=== PATIENT | female | born 1990 | race Caucasian/White ===

== ENCOUNTER 2018-04-04 05:40 | Emergency (ER) | payer BC, OTHER ==
[2018-04-04] MEDS ORDERED: NS 1,000 ML IV ONE (06:06)
[2018-04-04] MEDS ORDERED: KETOROLAC 30 MG/1 ML SDV IVP ONE (06:06)
[2018-04-04] MEDS ORDERED: ONDANSETRON 4 MG/2 ML VIAL ONE (06:11)
--- NOTE | 2018-04-04 06:11 | EDPHY ---
H & P Time Seen by Provider: 04/04/18 06:03 HPI/ROS: CC: Right flank pain HPI: This 27-year-old female with past medical history significant for excessive vaginal bleeding presents to the emergency department today complaining of abrupt onset of right flank pain that started at 4:30 a.m. this morning. She was fine prior to going to sleep last evening. She describes the pain as sharp and currently at 9/10. She also has pain across her lower abdomen. She has not had pain like this previously. She has had nausea and vomiting x 4 but denies fever or chills. Her urine is bloody. FDLMP 1 week ago. . No vaginal discharge. She has an IUD. REVIEW OF SYSTEMS: Constitutional: No fever, no chills. Eyes: No discharge. ENT: No sore throat. Respiratory: No cough, no shortness of breath. Cardiac: No chest pain, no palpitations. Gastrointestinal: See HPI. Genitourinary: See HPI. Musculoskeletal: No neck pain. Skin: No rashes. Neurological: No headache. Past Medical/Surgical History: PMH: Excessive vaginal bleeding/anemia. PSH: IUD, wisdom teeth FH: HTN NKDA Medications: None PCP [facility] Social History: Smokes hookah, 10 ETOH beverages/week, Marijuana 1-2x/month. Smoking Status: Current every day smoker Physical Exam: General Appearance: Alert, moderate distress. Eyes: Pupils equal and round no pallor or injection. ENT, Mouth: Mucous membranes are moist. Respiratory: There are no retractions, lungs are clear to auscultation. Cardiovascular: Regular rate and rhythm. Gastrointestinal: Abdomen is soft + tenderness to palpation across lower abdomen. No R/G/R, no masses, bowel sounds normal. Neurological: Awake and alert, sensory and motor exams grossly normal. Skin: Warm and dry, no rashes. Musculoskeletal: Neck is supple nontender. Extremities are symmetrical, full range of motion. Psychiatric: Patient is oriented X 3, there is no agitation. DIFFERENTIAL DIAGNOSIS: After history and physical exam differential diagnosis was considered for but not limited to: ureterolithiasis, appendicitis, ovarian torsion, ectopic , STI Constitutional: Initial Vital Signs Temperature (C) 98 F 04/04/18 05:50 Heart Rate 84 04/04/18 05:50 Respiratory Rate 20 04/04/18 05:50 Blood Pressure 115/74 04/04/18 05:50 O2 Sat (%) 92 04/04/18 05:50 O2 Delivery Mode Room Air Allergies/Adverse Reactions: No Known Allergies Allergy (Unverified 09/09/14 13:17) Home Medications: Medication Instructions Recorded Bcp 09/09/14 Iron 18 mg PO 09/09/14 Hydrocodone/Acetaminophen 2 each PO Q4 2 Days #10 tablet 04/04/18 [Hydrocodon-Acetaminophen 5-325] Tamsulosin HCl [Flomax 0.4 MG (*)] 0.4 mg PO DAILY #10 cap 04/04/18 Medical Decision Making - Diagnostics Imaging Results: CT Abd/Pelvis w/o contrast per verbal report Dr. Moreno: 5mm stone at right UPJ, moderate hydro. IUD malpositioned. Please refer to final written report. Imaging: Discussed imaging studies w/ order caller Radiologist ED Course/Re-evaluation: The patient was seen and examined. Vital signs reviewed. History and exam consistent with ureterolithiasis. UCG Negative. CBC with mild elevation of WBC at 9.9. Hg/Hct wnl. BMP significant for mild hypokalemia with K+ of 3.0. UA with 3+ blood. An IV was placed and the patient was given a L of IV fluids, 4 mg of Zofran IV push and 30 mg of Toradol IV push with good result. CT of the abdomen and pelvis without contrast showed a 5 mm stone at the right UPJ with moderate hydro. Her IUD was also malpositioned. Discussed with [place] For Dr. Saucedo urologist. Their surgery schedule is full today but the patient should call the office at 9:00 a.m. for an appointment tomorrow. Nothing to eat or drink after midnight. She would also like us to start Flomax and the patient was given the 1st dose in the ER. She will be given a take- home pack of hydrocodone and Zofran and a prescription for a short course of hydrocodone as well. The patient is aware that she should also call [facility] and have her IUD either repositioned or replaced and she should abstain from sexual activity until this is done. She was also counseled on increasing the potassium in her diet. All questions answered at this time. - Data Points Laboratory Results: 04/04/18 06:21 POC Sodium 139 mEq/L mEq/L (135-145) POC Potassium 3.0 mEq/L L mEq/L (3.3-5.0) POC Chloride 104.0 mEq/L mEq/L (97-110) POC Total CO2 21 mEq/L L mEq/L (22-31) POC BUN 11 mg/dL mg/dL (7-23) POC Creatinine 0.7 mg/dL mg/dL (0.6-1.0) POC Glucose 101 mg/dL H mg/dL (70-100) POC Calcium 9.1 mg/dL mg/dL (8.5-10.4) Medications Given: Discontinued Medications Sodium Chloride (Ns) 1,000 mls @ 0 mls/hr IV ONCE ONE; Wide Open PRN Reason: Protocol Stop: 04/04/18 06:07 Last Admin: 04/04/18 06:13 Dose: 1,000 mls Ketorolac Tromethamine (Toradol) 30 mg IVP EDNOW ONE Stop: 04/04/18 06:07 Last Admin: 04/04/18 06:14 Dose: 30 mg Ondansetron HCl (Zofran) 4 mg IVP EDNOW ONE Stop: 04/04/18 06:15 Last Admin: 04/04/18 06:17 Dose: 4 mg Point of Care Test Results: CBC CBC Collection Date 04/04/18 CBC Collection Time 06:00 WBC 9.9 RBC 5.54 HGB 13.4 HCT 40.5 PLT 231 Neut # 4.9 Neut 49.8 LYMPH # 4 LYMPH 40.2 Other WBC # 1 Other WBC 10 MCV 73.1 Chemistry 04/04/18 06:21 POC Sodium 139 mEq/L mEq/L (135-145) POC Potassium 3.0 mEq/L L mEq/L (3.3-5.0) POC Chloride 104.0 mEq/L mEq/L (97-110) POC Total CO2 21 mEq/L L mEq/L (22-31) POC BUN 11 mg/dL mg/dL (7-23) POC Creatinine 0.7 mg/dL mg/dL (0.6-1.0) POC Glucose 101 mg/dL H mg/dL (70-100) POC Calcium 9.1 mg/dL mg/dL (8.5-10.4) Urine Collection Date 04/04/18 Collection Time 06:06 HCG Results Negative Urine Dip Collection Date 04/04/18 Collection Time 06:06 Specific [place] (1.002-1.030) 1.025 PH (5.0-7.5) 5.5 Leukocytes (Negative) Negative Nitrites (Negative) Negative Protein (Negative) 2+ Glucose (Negative) Negative Ketones (Negative) 1+ Urobilnogen (0.2-1.0 EU) 0.2 Bilirubin (Negative) Negative Blood (Negative) 3+ Departure - Departure Disposition: Home, Routine, Self-Care Clinical Impression: Calculus of right kidney Condition: Good Instructions: Hydrocodone/Acetaminophen (By mouth), Ondansetron (By mouth), Tamsulosin (By mouth), Kidney Stones (ED), Hypokalemia (ED), How to Strain Your Urine (ED) Additional Instructions: Call the Urology office at 9am to schedule an appointment for tomorrow. Nothing to eat or drink after midnight tonight. Take Ibuprofen 600mg every 6 hours as needed for pain. Use the narcotic pain medication only for pain unrelieved by the ibuprofen. Call [facility] for an appointment to have your IUD repositioned or replaced. No sexual activity until this is done. Increase potassium containing foods in your diet. Your potassium level was slightly low here in the ER. [facility] may want to recheck this at some point in the future. Return to the ER if any further problems or concerns. Referrals: René Saucedo MD [Medical Doctor] [facility] - 5-7 days, call for appt. Prescriptions: Hydrocodone/Acetaminophen [Hydrocodon-Acetaminophen 5-325] 2 each PO Q4 2 Days # 10 tablet Tamsulosin HCl [Flomax 0.4 MG (*)] 0.4 mg PO DAILY #10 cap
[2018-04-04] MEDS ORDERED: ONDANSETRON 4 MG/2 ML VIAL IVP ONE (06:14)
[2018-04-04 06:59] VITALS: BP 109/72
[2018-04-04] MEDS ORDERED: TAMSULOSIN HCL 0.4 MG CAP PO ONE (07:01)
[2018-04-04] MEDS ORDERED: HYDROCOD/APAP 5/325 PREPACK#6 BTL TAKEHOME ONE (07:01)
[2018-04-04] MEDS ORDERED: ONDANSETRON 4MG PREPACK#2 BTL TAKEHOME ONE (07:01)
== END 2018-04-04 07:30 | disposition home or self-care (01) ==
LOC: CED 05:40
DX: N20.1 Calculus of ureter (principal); T83.32XA Displacement of intrauterine contraceptive device, initial encounter; E86.9 Volume depletion, unspecified
CPT/HCPCS: 74176-PO; 80048-PO; 96374; J1885; J2405

== ENCOUNTER → 2018-04-14 | Outpatient (CLI) | payer OTHER | LOC: FIMAGING 14:21 | PROVIDERS: ATTEND Specialist | DX: N20.1 Calculus of ureter (principal); N13.30 Unspecified hydronephrosis; Z97.5 Presence of (intrauterine) contraceptive device ==